=== PATIENT | male | born 1950 | race Caucasian/White ===

== ENCOUNTER 2017-03-26 09:20 | Emergency (ER) | payer OTHER ==
[~2017-03-26] VITALS: Ht 180.3 cm; Wt 98.4 kg
[~2017-03-26 09:20] MED LIST: ALLEGRA ALLERG180 MG PO; ASPIR-LOW81 MG PO; ATACAND32 MG PO; ATORVASTATIN CA40 MG PO; BYSTOLIC10 MG PO; ENDOCET 5-3251 EACH PO; ESCITALOPRAM OX10 MG PO; FERREX 150150 MG PO; FLOVENT DISKUS1 DIS2 IH; GLIPIZIDE ER2.5 MG PO; HYDROCHLOROTHIA25 MG PO; IRBESARTAN300 MG PO; IRON18 MG PO; IRON325 M1 PO; LEXAPRO10 MG PO; NIFEDIPINE ER60 MG PO; OMEPRAZOLE40 M1 PO; SIMVASTATIN80 MG PO; TAMIFLU75 MG PO; TAMSULOSIN HCL0.4 MG PO; TRILIPIX45 MG PO
[2017-03-26 11:25] LABS: HEMATOCRIT 31.1 % (38.0-50.0); MCH 30.8 PG (29.0-34.0); MCHC 30.5 G/DL (30.0-36.0); MEAN PLAT.VOLUME 9.8 uM^3 (9.0-12.4); PLATELET COUNT 224 K/uL (156-360); RBC DIS.WIDTH-CV 19.7 % (11.8-14.6); RBC DIS.WIDTH-SD 72.3 % (39-53); RED BLOOD COUNT 3.08 M/uL (4.00-5.50); WHITE BLOOD COUNT 5.3 K/uL (4.1-10.2)
[2017-03-26 11:41] LABS: CHLORIDE 103 mEq/L (99-109); SODIUM 140 mEq/L (136-147)
[2017-03-26 11:43] LABS: GLUCOSE 159 mg/dL (70-99)
[2017-03-26 11:45] LABS: ANION GAP 8 MEQ/L (2-14); TROP-I INTERPRETATION NEGATIVE; TROPONIN-I < 0.01 ng/mL (0.0-0.30)
[2017-03-26 11:47] LABS: GFR ESTIMATE (CALCULATED) > 59 mL/min/
[2017-03-26 11:48] LABS: TOTAL BILIRUBIN 0.1 mg/dL (0.0-1.0); UREA NITROGEN (BUN) 19 mg/dL (9-23)
[2017-03-26 11:49] LABS: ALKALINE PHOSPHATASE 67 IU/L (3-129)
[2017-03-26 11:51] LABS: DIRECT BILIRUBIN 0.1 mg/dL (0.0-0.3)
[2017-03-26 14:18] VITALS: BP 173/88
== END 2017-03-26 14:18 | disposition home or self-care (01) ==
LOC: EME 09:20
DX: R60.0 Localized edema (principal); I10 Essential (primary) hypertension; E11.9 Type 2 diabetes mellitus without complications; K21.9 Gastro-esophageal reflux disease without esophagitis; F41.9 Anxiety disorder, unspecified; Z79.82 Long term (current) use of aspirin; Z87.891 Personal history of nicotine dependence; Z90.5 Acquired absence of kidney
CPT/HCPCS: 71020; 80048; 80076; 83880; 84484; 85027; 99281; 99284

== ENCOUNTER → 2017-12-20 | Outpatient (CLI) | payer OTHER ==
[~2017-12-20] VITALS: Ht 180.3 cm; Wt 109.3 kg
[~2017-12-20] MED LIST changes: +BUMEX0.5 MG PO; +CARDURA4 MG PO; +FERREX 150 PLU1 EACH PO; +FLONASE ALLERG9.9 ML BOTH NARES; +PROCARDIA XL30 MG PO; +TYLENOL EXTRA500 MG PO; +VITAMIN B122500 MCG PO; +ZYRTEC10 M2 PO
[2017-12-20 12:17] LABS: HEMATOCRIT 33.7 % (38.0-50.0); HEMOGLOBIN 10.9 G/DL (12.5-16.6); MCV 98.3 FL (86-99)
== END | disposition home or self-care (01) ==
LOC: AMB 11:24
PROVIDERS: Anesthesiology; Specialist
DX: D50.0 Iron deficiency anemia secondary to blood loss (chronic) (principal); K31.819 Angiodysplasia of stomach and duodenum without bleeding; K55.20 Angiodysplasia of colon without hemorrhage; K64.8 Other hemorrhoids; E78.5 Hyperlipidemia, unspecified; I10 Essential (primary) hypertension; Z79.82 Long term (current) use of aspirin; Z80.0 Family history of malignant neoplasm of digestive organs; E66.3 Overweight; Z68.35 Body mass index [BMI] 35.0-35.9, adult
CPT/HCPCS: 82948; 85014; 85018; 88305; 88342 TC

== ENCOUNTER → 2017-12-20 | Outpatient (CLI) | payer OTHER | END | disposition home or self-care (01) | LOC: RAD 10:56 | DX: M48.02 Spinal stenosis, cervical region (principal); M47.893 Other spondylosis, cervicothoracic region; M54.12 Radiculopathy, cervical region; M47.22 Other spondylosis with radiculopathy, cervical region; M12.88 Other specific arthropathies, not elsewhere classified, other specified site | CPT/HCPCS: 72125 ==